=== PATIENT | male | born 1965 | race African-American/Black ===

== ENCOUNTER 2024-12-29 09:56 | Outpatient (CLI) | payer MEDICAID, OTHER | END 2024-12-29 09:57 | disposition home or self-care (01) | LOC: CSHWCC 09:56 | PROVIDERS: ATTEND Nurse Practitioner Family | DX: S21.001D Unspecified open wound of right breast, subsequent encounter (principal); E11.622 Type 2 diabetes mellitus with other skin ulcer; L98.499 Non-pressure chronic ulcer of skin of other sites with unspecified severity; L57.8 Other skin changes due to chronic exposure to nonionizing radiation; Z85.3 Personal history of malignant neoplasm of breast | CPT/HCPCS: 11042 ==